=== PATIENT | male | born 1990 | race Caucasian/White ===

== ENCOUNTER → 2018-10-15 | Outpatient (CLI) | payer OTHER ==
[~2018-10-15] VITALS: Ht 185.4 cm; Wt 90.7 kg
[~2018-10-15] MED LIST: ALDACTONE50 MG PO; CETIRIZINE HCL5 MG PO; ESTRADIOL PO; IBUPROFEN 200200 M1 PO
--- NOTE | ~2018-10-15 | HPC ---
[facility] [address] [address] PAIN MANAGEMENT CONSULTATION Name: ELVIS MARTINS Room #: REG [facility] M..#: [id number] Admission: 10/15/18 Attend Phys: Aaron Fierro MD Discharge: Date of : 89 Report #: [id number] THIS REPORT FOR: //name// CC: Juno Fierro DATE OF SERVICE: 10/15/2018 CHIEF COMPLAINT: Low back pain, alternating from right to left. HISTORY OF PRESENT ILLNESS: The patient is here today at the request of Dr. Chawla for pain in the lumbosacral region. Pain has been ongoing for approximately 1 year. He describes it as a sharp, intermittent pain, at times on the right, other times on the left. It is worsened by prolonged sitting or standing, prolonged walking or rotational movements. He has had some relief from heat and is currently on ibuprofen on a daily basis. He takes three 200 mg tablets every 6 hours. MEDICATIONS: Include also estradiol, spironolactone and Zyrtec. ALLERGIES: None. PAST MEDICAL HISTORY: Surgery for wisdom teeth removal in the summer of 2008 and he fractured his thumb and required surgery in 2016. He is otherwise healthy. It should be noted that he is having gender dysphoria and is currently in the process of gender transition! 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 Smokes cigars on occasion and drinks alcohol 6-7 times per week in a recreational setting. Denies use of any recreational drugs. His opioid risk score is 3 for attention deficit disorder and age of less than 15. PHYSICAL EXAMINATION: GENERAL: Pleasant, easygoing 28-year-old. VITAL SIGNS: He is 6 feet 1 inch, 200 pounds, BMI of 26.4. Blood pressure 106/59, heart rate 68 and respirations 14. MUSCULOSKELETAL: Examination of the low back reveals tenderness bilaterally in the sacroiliac joints today, worse on the left. Very isoh-la-moxndgq pain on the right. Straight leg raising is negative. The Jono is indicative of sacroiliac joint with crossover pain located in the sacroiliac joint with contralateral right hip testing. There is no pain in the hip joint with these maneuvers. IMPRESSION: Sacroiliac joint pain today on the left. [facility] [address] [place] [address] PAIN MANAGEMENT CONSULTATION Name: ELVIS MARTINS Room #: REG [facility] Manda.#: [id number] Admission: 10/15/18 Attend Phys: Aaron Fierro MD Discharge: Date of : 89 Report #: [id number] RECOMMENDATIONS: Diagnostic/therapeutic injection of the sacroiliac joint under fluoroscopic guidance. Symptoms have been ongoing now for a year despite conservative therapy. I believe it is reasonable to do an injection, which I think will be helpful in diagnosing the pain generator. I have reviewed his x-rays. There is no other evidence of spinal pathology to document. We will see him back within the next few days for injection. By: [id number] Aaron Fierro MD /romie
[2018-10-15 10:48] VITALS: BP 106/59
--- NOTE | 2018-10-15 11:31 | NUR ---
Pain Clinic Assessment: 1. History of Osteoarthritis: * Not Applicable History of Rheumatoid Arthritis: Not Applicable 2. Height: 6 ft. 1 in. 185.4 cm. Weight: 200.0 lb. oz. 90.720 kg. Patient's BMI: 26.4 3. Vital Signs: BP: 106/59 Pulse: 68 Resp: 14 Temp: 02 Sat: 98 ECG Mon: 4. Pain Intensity: 4 5. Fall Risk: Dizziness: N Needs help standing or walking: N Fallen in the last 3 months: N Fall risk comments: 6. Patient on Blood Thinner: None 7. History of Hypertension: N 8. Opioid Therapy greater than 6 weeks: N Opiate Contract Signed: 9. Risk Assessment Tool Provided: 3-LOW RISK 10. Functional Assessment Tool: * 11. Recreational Drug Use: Unknown Drug Type: Tobacco Use: Light Tobacco Smoker Tobacco Type: Cigars Amount or Packs/day: OCCASIONAL How Many Years: 2 Alcohol Use: Yes Frequency: Weekly Quant: 6-7/WEEK
== END ==
LOC: PAIN 07:05
DX: M53.3 Sacrococcygeal disorders, not elsewhere classified (principal)

== ENCOUNTER → 2018-11-19 | Outpatient (CLI) | payer OTHER ==
[~2018-11-19] VITALS: Ht 185.4 cm; Wt 93.3 kg
--- NOTE | ~2018-11-19 | HPC ---
[facility] [address] [place] [address] PAIN MANAGEMENT CONSULTATION Name: ELVIS MARTINS Room #: REG [facility] Manda.#: [id number] Admission: 11/19/18 Attend Phys: Aaron Fierro MD Discharge: Date of : 89 Report #: [id number] THIS REPORT FOR: //name// CC: Juno Fierro DATE OF SERVICE: 11/19/2018 Followup visit for sacroiliac joint pain. The patient returns to the pain clinic today for injection therapy. I was embarrassed that I initially thought that we had planned on performing an epidural injection. I remembered him from his visit that began discussing his injection before I reviewed his record. His pain is not indicative of radiculopathy, but much more of bilateral sacroiliac joint pain. I reviewed his dictation from 10/15/2018 with him and discussed sacroiliac injections following my error. His pain continues to migrate from right to left. Today, it is worse on the right, but most days, it is on the left. It is worse by prolonged sitting, standing or walking or any sort of rotational movements. There is localized tenderness bilaterally in the sacroiliac joints, today it is much more prominent on the right. Pain has been ongoing now for over a year or so. He is hopeful that an injection will ease the pain burden. I have talked about the importance of remaining active. He is suffering from "gender dysphoria" and is in the process of gender transition. He is under some hormonal therapy. The glucocorticoid should not dramatically affect this. PHYSICAL EXAMINATION: GENERAL: He is a pleasant 28-year-old. VITAL SIGNS: Blood pressure 116/93, heart rate 86, respirations 16. There is noted some mild gynecomastia. MUSCULOSKELETAL: Examination of the low back reveals bilateral tenderness of the sacroiliac joint, worse today on the right. Her JOSE test once again causes pain in the sacroiliac joint with some crossover. IMPRESSION: Sacroiliitis, bilateral. PROCEDURE: Bilateral sacroiliac joint injection under fluoroscopic guidance. After informed consent for the sacroiliac joint, not the epidural, he was taken to the fluoroscopic suite where he was placed in the prone position. Skin was [address] [address] PAIN MANAGEMENT CONSULTATION Name: ELVIS MARTINS Room #: REG [facility]..#: [id number] Admission: 11/19/18 Attend Phys: Aaron Fierro MD Discharge: Date of : 89 Report #: [id number] prepped with ChloraPrep bilaterally. A fluoroscopic guidance was used to anesthetize the skin overlying first the right sacroiliac joint and then the left. I first injected the right with 2 mL of 0.5% bupivacaine and 40 mg triamcinolone. The left then followed. Needle position confirmed by fluoroscopy. He tolerated the procedures well. On admission, pain score again noted to be 2 by the nurse, was 0 at discharge. A followup visit planned as needed. No medications ordered. By: [id number] Aaron Fierro MD /nt
[2018-11-19 13:53] VITALS: BP 116/73
--- NOTE | 2018-11-19 14:12 | NUR ---
Pain Clinic Assessment: 1. History of Osteoarthritis: Not Applicable History of Rheumatoid Arthritis: Not Applicable 2. Height: 6 ft. 1 in. 185.4 cm. Weight: 205.8 lb. oz. 93.350 kg. Patient's BMI: 27.2 3. Vital Signs: BP: 116/73 Pulse: 86 Resp: 16 Temp: 02 Sat: 100 ECG Mon: 4. Pain Intensity: 1-2 5. Fall Risk: Dizziness: N Needs help standing or walking: N Fallen in the last 3 months: N Fall risk comments: 6. Patient on Blood Thinner: None 7. History of Hypertension: N 8. Opioid Therapy greater than 6 weeks: N Opiate Contract Signed: 9. Risk Assessment Tool Provided: 3-LOW RISK 10. Functional Assessment Tool: * 11. Recreational Drug Use: Unknown Drug Type: Tobacco Use: Light Tobacco Smoker Tobacco Type: Amount or Packs/day: How Many Years: Alcohol Use: Yes Frequency: Quant:
== END | disposition home or self-care (01) ==
LOC: PAIN 07:11
DX: M53.3 Sacrococcygeal disorders, not elsewhere classified (principal); Z88.1 Allergy status to other antibiotic agents; Z79.899 Other long term (current) drug therapy; F17.210 Nicotine dependence, cigarettes, uncomplicated

== ENCOUNTER → 2018-12-24 | Outpatient (CLI) | payer OTHER | LOC: MRI 14:41 | DX: M54.16 Radiculopathy, lumbar region (principal); G89.29 Other chronic pain; M46.1 Sacroiliitis, not elsewhere classified; Z68.26 Body mass index [BMI] 26.0-26.9, adult ==